=== PATIENT | female | born 1995 | race Two or more races ===

== ENCOUNTER 2018-06-16 17:50 | Emergency (ER) | payer SELFPAY ==
[~2018-06-16] VITALS: Ht 149.9 cm; Wt 68.0 kg
[2018-06-16 18:38] VITALS: BP 95/76
[2018-06-16] MEDS ORDERED: IV NORMAL SALINE 1000ML BAG 1,000 ML IV ONE (19:00)
--- NOTE | 2018-06-16 19:01 | PHYS DOC ---
Adult General Chief Complaint Chief Complaint: ABDOMINAL PAIN IN HPI HPI Patient is a 23 year old female who presents with lower abdominal pain Patient was diagnosed 8 days ago. Last night she had abrupt onset of left lower quadrant pain 8/10 severity constant without any aggravating or alleviating factors. She was sitting down when it occurred. She notes no vaginal bleeding or discharge. She's had prior 5 years ago. She denies any medical problems. She doesn't take any medications for anything. She doesn't smoke drink or do drugs. Review of Systems Review of Systems Constitutional: Denies fever or chills Eyes: Denies change in visual acuity, redness, or eye pain HENT: Denies nasal congestion or sore throat Respiratory: Denies cough or shortness of breath Cardiovascular: No additional information not addressed in HPI GI: With lower abdominal pain, nausea, no vomiting, bloody stools or diarrhea : Denies dysuria or hematuria, no vaginal bleeding Musculoskeletal: Denies back pain or joint pain Integument: Denies rash or skin lesions Neurologic: Denies headache, focal weakness or sensory changes Endocrine: Denies polyuria or polydipsia All other systems were reviewed and found to be within normal limits, except as documented in this note. Current Medications Current Medications Current Medications Medications (Trade) Dose Ordered Sig/Vandana Start Time Stop Time Status Last Admin Dose Admin Ceftriaxone Sodium (Rocephin) 1 gm Q24H 06/17/18 21:00 06/17/18 21:00 IA Clindamycin HCl (Cleocin) 300 mg 1X ONCE 06/16/18 23:00 06/16/18 23:02 DC 06/16/18 23:26 300 MG Sodium Chloride 1,000 ml @ 1,000 mls/hr 1X ONCE 06/16/18 19:00 06/16/18 19:59 DC 06/16/18 19:28 1,000 MLS/HR Allergies Allergies Allergies Coded Allergies Type Severity Reaction Last Updated Verified Penicillins Allergy Intermediate Hives 06/16/18 Yes Physical Exam Physical Exam Constitutional: Well developed, well nourished, no acute distress, non-toxic appearance. HENT: Normocephalic, atraumatic, bilateral external ears normal, oropharynx moist, no oral exudates, nose normal. Eyes: PERRLA, EOMI, conjunctiva normal, no discharge. Neck: Normal range of motion, no tenderness, supple, no stridor. Cardiovascular:Heart rate regular rhythm, no murmur Lungs & Thorax: Bilateral breath sounds clear to auscultation Abdomen: Bowel sounds normal, soft, with LLQ tenderness, no masses, no pulsatile masses. Pelvic exam with RN Adapted Physical Education Specialist Rama RN normal external genitalia speculum with white discharge in vault, no blood Bimanual with mild left adnexal tenderness, no masses. Uterus non tender, os closed. Skin: Warm, dry, no erythema, no rash. Back: No tenderness, no CVA tenderness. Extremities: No tenderness, no cyanosis, no clubbing, ROM intact, no edema. Neurologic: Alert and oriented X 3, normal motor function, normal sensory function, no focal deficits noted. Psychologic: Affect normal, judgement normal, mood normal. Current Patient Data Vital Signs Vital Signs Date Time Temp Pulse Resp B/P (MAP) Pulse Ox O2 Delivery O2 Flow Rate FiO2 06/16/18 18:38 98.4 75 16 95/76 (82) 100 Room Air 98.4 Lab Values Laboratory Tests Test 06/16/18 19:15 06/16/18 19:20 White Blood Count 7.4 x10^3/uL (4.0-11.0) Red Blood Count 4.08 x10^6/uL (3.50-5.40) Hemoglobin 12.5 g/dL (12.0-15.5) Hematocrit 36.9 % (36.0-47.0) Mean Corpuscular Volume 90 fL (79-100) Mean Corpuscular Hemoglobin 31 pg (25-35) Mean Corpuscular Hemoglobin Concent 34 g/dL (31-37) Red Cell Distribution Width 13.4 % (11.5-14.5) Platelet Count 296 x10^3/uL (140-400) Neutrophils (%) (Auto) 63 % (31-73) Lymphocytes (%) (Auto) 25 % (24-48) Monocytes (%) (Auto) 6 % (0-9) Eosinophils (%) (Auto) 6 % (0-3) H Basophils (%) (Auto) 0 % (0-3) Neutrophils # (Auto) 4.6 x10^3uL (1.8-7.7) Lymphocytes # (Auto) 1.9 x10^3/uL (1.0-4.8) Monocytes # (Auto) 0.4 x10^3/uL (0.0-1.1) Eosinophils # (Auto) 0.5 x10^3/uL (0.0-0.7) Basophils # (Auto) 0.0 x10^3/uL (0.0-0.2) Maternal Serum HCG Beta Subunit 5613 mIU/mL (0-5) H Sodium Level 139 mmol/L (136-145) Potassium Level 3.7 mmol/L (3.5-5.1) Chloride Level 103 mmol/L (98-107) Carbon Dioxide Level 25 mmol/L (21-32) Anion Gap 11 (6-14) Blood Urea Nitrogen 5 mg/dL (7-20) L Creatinine 0.6 mg/dL (0.6-1.0) Estimated GFR (Cockcroft-Gault) 123.9 BUN/Creatinine Ratio 8 (6-20) Glucose Level 84 mg/dL (70-99) Calcium Level 8.9 mg/dL (8.5-10.1) Total Bilirubin 0.3 mg/dL (0.2-1.0) Aspartate Amino Transferase (AST) 11 U/L (15-37) L Alanine Aminotransferase (ALT) 25 U/L (14-59) Alkaline Phosphatase 71 U/L (46-116) Total Protein 7.6 g/dL (6.4-8.2) Albumin 3.5 g/dL (3.4-5.0) Albumin/Globulin Ratio 0.9 (1.0-1.7) L Serum Test, Qualitative Positive (NEG) Urine Collection Type Unknown Urine Color Yellow Urine Clarity Clear Urine pH 7.0 Urine Specific [place] 1.020 Urine Protein Negative mg/dL (NEG-TRACE) Urine Glucose (UA) Negative mg/dL (NEG) Urine Ketones (Stick) Negative mg/dL (NEG) Urine Blood Negative (NEG) Urine Nitrite Negative (NEG) Urine Bilirubin Negative (NEG) Urine Urobilinogen Dipstick 1.0 mg/dL (0.2 mg/dL) Urine Leukocyte Esterase Moderate (NEG) Urine RBC Occ /HPF (0-2) Urine WBC 11-20 /HPF (0-4) Urine Squamous Epithelial Cells Mod /LPF Urine Bacteria Moderate /HPF (0-FEW) Urine Mucus Mod /LPF Laboratory Tests 06/16/18 19:15 Laboratory Tests 06/16/18 19:15 Microbiology 06/16/18 Wet Prep - Final, Complete Microbiology 06/16/18 Wet Prep - Final, Complete EKG EKG [] Radiology/Procedures Radiology/Procedures [[facility] [address] [place] [address] IMAGING REPORT Signed PATIENT: HEATH MORRIS ACCOUNT: [id number] : 1995 LOCATION: ER AGE: 23 SEX: F EXAM STATUS: REG ER ORD. PHYSICIAN: LIA SAMPSON MD REASON: LLQ pain PROCEDURE: OB <14 WKS W/TV Indication:LLQ PAIN, UTI TECHNIQUE: Ultrasound OB less than 14 weeks. COMPARISON:None FINDINGS: The uterus is anteverted and measures 11.5 x 3.6 x 5.8 cm (longitudinal, AP, transverse). The left ovary measures 3.8 x 2.5 x 3.2 cm with a thick walled 2.3 x 1.8 x 2.0 cm cystic structure most likely corpus luteal cyst of . The left ovary demonstrates evidence of blood flow. There is a well-circumscribed cystic structure in the endometrium with mean sac diameter of 0.53 cm corresponding to gestation age of 5 weeks 2 days. Yolk sac is visualized. No pole or cardiac activity seen. The cervix measures 3.12 cm in length and is closed. The right ovary measures 3.0 x 1.2 x 2.0 cm and demonstrates evidence of blood flow. IMPRESSION: Cystic structure in the endometrium most likely early gestation sac corresponding to gestation age of 5 weeks 4 days. No pole identified yet. Ectopic is not entirely ruled out. Clinically correlate with beta-hCG. Follow-up ultrasound recommended document pole. ======== Indication: Left lower quadrant pain. TECHNIQUE: Grayscale, color Doppler images of the left kidney. COMPARISON: None FINDINGS: The left kidney measures 10.8 x 5.3 x 6.3 cm (longitudinal, AP, transverse) without hydronephrosis. IMPRESSION: Normal sonographic appearance of left kidney. Electronically signed by: Nael Vargas DO (06/16/2018 9:54 PM) [facility] DICTATED and SIGNED BY: VARGASNAEL GARCIA DO DATE: 06/16/182149 Course & Med Decision Making Course & Med Decision Making Pertinent Labs and Imaging studies reviewed. (See chart for details) Emergency Department course Patient presents with lower abdominal pain, DDx-ectopic , , ovarian cyst, UTI, kidney stone Patient was stable in the ED improved after IV NS hydration. Labs remarkable for BHCG 5613, U/A showed UTI. Patient was given Rocephin IV. Pelvic and renal ultrasound showed no ectopic, hydronephrosis or stone. Patient has left corpus luteal cyst which maybe the cause of her pain. Wet prep showed bacterial vaginosis. Patient was given Clindamycin. Patient will follow-up with PCP for further evaluation and serial BHCG testing. Patient given ectopic precautions and advised to return to the ED for pain, bleeding, lightheadedness, SOB or vomiting. Patient was given prescription for Keflex and Clindamycin. 21:35 Preliminary report from material worker 5 week IUP with yoke sac Left corpus luteal cyst 2.5cm Left Kidney is normal Dragon Disclaimer Dragon Disclaimer This electronic medical record was generated, in whole or in part, using a voice recognition dictation system. Departure Departure Impression: Primary Impression: 5 weeks gestation of Additional Impressions: UTI (urinary tract infection) Bacterial vaginosis Corpus luteum cyst Disposition: HOME, SELF-CARE Condition: STABLE Referrals: NO PCP (PCP) DELLA JOSE MD Follow-up on Tuesday for further evaluation Patient Instructions: Bacterial Vaginosis, - Urinary Tract Infection Scripts Clindamycin Hcl (CLINDAMYCIN HCL) 300 Mg Capsule 1 CAP PO BID, #14 CAP Prov: LIA ASMPSON MD 06/16/18 Cephalexin (KEFLEX) 500 Mg Capsule 1 CAP PO BID, #14 CAP Prov: LIA SAMPSON MD 06/16/18 Problem Qualifiers LIA SAMPSON MD Jun 16, 2018 19:01
[2018-06-16 19:29] LABS: BASO % 0 % (0-3); EOS # 0.5 x10^3/uL (0.0-0.7); EOS % 6 % (0-3); HEMATOCRIT 36.9 % (36.0-47.0); HEMOGLOBIN 12.5 g/dL (12.0-15.5); LYMPH # 1.9 x10^3/uL (1.0-4.8); LYMPH % 25 % (24-48); MEAN CORPUSCULAR HEMOGLOBIN 31 pg (25-35); MEAN CORPUSCULAR HGB CONC 34 g/dL (31-37); MEAN CORPUSCULAR VOLUME 90 fL (79-100); MONO # 0.4 x10^3/uL (0.0-1.1); MONO % 6 % (0-9); NEUT # 4.6 x10^3uL (1.8-7.7); NEUT % 63 % (31-73); PLATELET COUNT 296 x10^3/uL (140-400); RED BLOOD COUNT 4.08 x10^6/uL (3.50-5.40); RED CELL DISTRIBUTION WIDTH 13.4 % (11.5-14.5); WHITE BLOOD COUNT 7.4 x10^3/uL (4.0-11.0)
[2018-06-16 19:31] LABS: BILIRUBIN,URINE NEGATIVE (NEG); CLARITY,URINE CLEAR; COLOR,URINE YELLOW; NITRITE,URINE NEGATIVE (NEG); PROTEIN,URINE NEGATIVE (NEG-TRACE)
[2018-06-16 19:39] LABS: CALCIUM 8.9 mg/dL (8.5-10.1); CREATININE 0.6 mg/dL (0.6-1.0); GFR 123.9; POTASSIUM 3.7 mmol/L (3.5-5.1)
[2018-06-16 19:40] LABS: PREG TEST PT QUAL POSITIVE (NEG)
[2018-06-16 19:41] LABS: BACTERIA,URINE MODERATE /HPF (0-FEW); RBC,URINE OCC /HPF (0-2); SQUAMOUS EPITHELIAL CELL,UR MOD /LPF
[2018-06-16 19:45] LABS: ALBUMIN 3.5 g/dL (3.4-5.0); ALBUMIN/GLOBULIN RATIO 0.9 (1.0-1.7); TOTAL BILIRUBIN 0.3 mg/dL (0.2-1.0); TOTAL PROTEIN 7.6 g/dL (6.4-8.2)
--- NOTE | 2018-06-16 21:57 | RAD ---
Indication:LLQ PAIN, UTI TECHNIQUE: Ultrasound OB less than 14 weeks. COMPARISON:None FINDINGS: The uterus is anteverted and measures 11.5 x 3.6 x 5.8 cm (longitudinal, AP, transverse). The left ovary measures 3.8 x 2.5 x 3.2 cm with a thick walled 2.3 x 1.8 x 2.0 cm cystic structure most likely corpus luteal cyst of . The left ovary demonstrates evidence of blood flow. There is a well-circumscribed cystic structure in the endometrium with mean sac diameter of 0.53 cm corresponding to gestation age of 5 weeks 2 days. Yolk sac is visualized. No pole or cardiac activity seen. The cervix measures 3.12 cm in length and is closed. The right ovary measures 3.0 x 1.2 x 2.0 cm and demonstrates evidence of blood flow. IMPRESSION: Cystic structure in the endometrium most likely early gestation sac corresponding to gestation age of 5 weeks 4 days. No pole identified yet. Ectopic is not entirely ruled out. Clinically correlate with beta-hCG. Follow-up ultrasound recommended document pole. ======== Indication: Left lower quadrant pain. TECHNIQUE: Grayscale, color Doppler images of the left kidney. COMPARISON: None FINDINGS: The left kidney measures 10.8 x 5.3 x 6.3 cm (longitudinal, AP, transverse) without hydronephrosis. IMPRESSION: Normal sonographic appearance of left kidney. Electronically signed by: Nael Vargas DO (06/16/2018 9:54 PM) [facility]
[2018-06-16] MEDS ORDERED: CLINDAMYCIN HCL 150 MG CAPSULE. PO ONE (23:00)
[2018-06-16] MEDS ORDERED: CLIN300C8 PO (23:05)
[2018-06-16] MEDS ORDERED: CEPH-264 PO (23:05)
[2018-06-17] MEDS ORDERED: cefTRIAXone IV Push 1 GM VIAL. IVP SCH (21:00)
[2018-06-19 14:21] LABS: GC PROBE Negative (Negative)
== END 2018-06-16 23:40 | disposition home or self-care (01) ==
LOC: ER 17:50
DX: O34.81 Maternal care for other abnormalities of pelvic organs, first trimester (principal); N83.12 Corpus luteum cyst of left ovary; O23.41 Unspecified infection of urinary tract in pregnancy, first trimester; O23.591 Infection of other part of genital tract in pregnancy, first trimester; N76.0 Acute vaginitis; B96.89 Other specified bacterial agents as the cause of diseases classified elsewhere; Z3A.01 Less than 8 weeks gestation of pregnancy; Z88.0 Allergy status to penicillin
CPT/HCPCS: 36415; 76775; 76801; 76817; 80053; 81001; 84702; 84703; 85025; 87086; 87491; 87591; 96365; 99285; J0690; J7030; Q0111

== ENCOUNTER 2018-06-22 08:38 | Emergency (ER) | payer SELFPAY ==
[~2018-06-22] VITALS: Ht 154.9 cm; Wt 66.7 kg
[~2018-06-22 08:38] MED LIST: CEPH-264 PO; CLIN300C8 PO
[2018-06-22 09:11] LABS: BILIRUBIN,URINE NEGATIVE (NEG); CLARITY,URINE CLOUDY; COLOR,URINE AMBER; NITRITE,URINE NEGATIVE (NEG); PROTEIN,URINE 30 mg/dL (NEG-TRACE); UROBILINOGEN,URINE 0.2 mg/dL (0.2 mg/dL)
[2018-06-22 09:19] LABS: SQUAMOUS EPITHELIAL CELL,UR MANY /LPF
[2018-06-22 09:20] LABS: BACTERIA,URINE MANY /HPF (0-FEW)
[2018-06-22 09:41] LABS: BASO % 0 % (0-3); EOS # 0.2 x10^3/uL (0.0-0.7); EOS % 4 % (0-3); HEMOGLOBIN 12.6 g/dL (12.0-15.5); LYMPH # 1.4 x10^3/uL (1.0-4.8); LYMPH % 23 % (24-48); MEAN CORPUSCULAR HEMOGLOBIN 31 pg (25-35); MEAN CORPUSCULAR HGB CONC 34 g/dL (31-37); MEAN CORPUSCULAR VOLUME 90 fL (79-100); MONO # 0.4 x10^3/uL (0.0-1.1); MONO % 6 % (0-9); NEUT # 4.2 x10^3uL (1.8-7.7); NEUT % 68 % (31-73); PLATELET COUNT 275 x10^3/uL (140-400); RED BLOOD COUNT 4.09 x10^6/uL (3.50-5.40); RED CELL DISTRIBUTION WIDTH 13.1 % (11.5-14.5); WHITE BLOOD COUNT 6.2 x10^3/uL (4.0-11.0)
[2018-06-22 09:48] LABS: CREATININE 0.5 mg/dL (0.6-1.0); GFR 152.9; POTASSIUM 3.4 mmol/L (3.5-5.1)
[2018-06-22 09:55] LABS: ALBUMIN 3.3 g/dL (3.4-5.0); ALBUMIN/GLOBULIN RATIO 0.8 (1.0-1.7); TOTAL BILIRUBIN 0.4 mg/dL (0.2-1.0); TOTAL PROTEIN 7.2 g/dL (6.4-8.2)
--- NOTE | 2018-06-22 11:23 | RAD ---
OB TRANSVAG Clinical Indication: VAGINAL BLEEDING Comparison: Obstetrical ultrasound, less than 14 weeks, June 16, 2018. TECHNIQUE: Real-time ultrasound imaging of the pelvis using transvaginal window is performed. Findings: Anteverted uterus. Uterus measures 8.8 x 6.4 x 4.2 cm. The maternal right ovary is not visualized perhaps due to overlying bowel gas. Left corpus luteum redemonstrated measuring up to 1.8 cm. Normal blood flow in left ovary. Intrauterine gestational sac containing a pole and yolk sac. Contour of the sac is smooth, no perigestational hemorrhage. [place]-rump length is 0.3 cm, 5 weeks and 6 days. Estimated heart rate 92 bpm. LIZA ultrasound is 02/16/2019. IMPRESSION: 1. Single live intrauterine gestation, estimated sonographic gestational age 5 weeks and 6 days. 2. Estimated heart rate is 92 bpm, slower than expected. Suggest attention on follow-up imaging. 3. Redemonstrated left corpus luteum. Electronically signed by: Lucio Varner MD (06/22/2018 11:20 AM) [id number]
[2018-06-22] MEDS ORDERED: NITR100C63 PO (11:42)
--- NOTE | 2018-06-22 11:42 | PHYS DOC ---
Past Medical History Past Medical History: No Pertinent History Past Surgical History: Alcohol Use: None Drug Use: None Adult General Chief Complaint Chief Complaint: VAGINAL BLEEDING [facility] HPI Patient is a 23 year old female 2 para 1 currently 5 weeks who presents today complaining of vaginal spotting that she noted this morning when she wiped herself. Patient denies any abdominal pain. Denies any nausea, vomiting. She states she has not seen an MANAGER CATEGORY in this yet. Interpretation was provided by a friend patient brought to the ED with, patient spoke Upper Sorbian only. Review of Systems Review of Systems Constitutional: Denies fever or chills [] Eyes: Denies change in visual acuity, redness, or eye pain [] HENT: Denies nasal congestion or sore throat [] Respiratory: Denies cough or shortness of breath [] Cardiovascular: No additional information not addressed in HPI [] GI: Denies abdominal pain, nausea, vomiting, bloody stools or diarrhea [] : Reports vaginal spotting. Denies dysuria or hematuria [] Musculoskeletal: Denies back pain or joint pain [] Integument: Denies rash or skin lesions [] Neurologic: Denies headache, focal weakness or sensory changes [] All other systems were reviewed and found to be within normal limits, except as documented in this note. Allergies Allergies Allergies Coded Allergies Type Severity Reaction Last Updated Verified Penicillins Allergy Intermediate Hives 06/16/18 Yes Physical Exam Physical Exam Constitutional: Well developed, well nourished, no acute distress, non-toxic appearance. [] HENT: Normocephalic, atraumatic, bilateral external ears normal, oropharynx moist, no oral exudates, nose normal. [] Eyes: PERRLA, EOMI, conjunctiva normal, no discharge. [] Neck: Normal range of motion, no tenderness, supple, no stridor. [] Cardiovascular:Heart rate regular rhythm, no murmur [] Lungs & Thorax: Bilateral breath sounds clear to auscultation [] Abdomen: Bowel sounds normal, soft, no tenderness, no masses, no pulsatile masses. [] Pelvic exam External pelvic appears normal, cervix is closed, no CMT, no adnexal tenderness , trace amount of brownish discharge in the vaginal vault consistent with spotting. Skin: Warm, dry, no erythema, no rash. [] Back: No tenderness, no CVA tenderness. [] Extremities: No tenderness, no cyanosis, no clubbing, ROM intact, no edema. [] Neurologic: Alert and oriented X 3, normal motor function, normal sensory function, no focal deficits noted. [] Psychologic: Affect normal, judgement normal, mood normal. [] Current Patient Data Vital Signs Vital Signs Date Time Temp Pulse Resp B/P (MAP) Pulse Ox O2 Delivery O2 Flow Rate FiO2 06/22/18 10:33 82 17 102/58 (73) 98 Room Air 06/22/18 08:50 98.0 98.0 Lab Values Laboratory Tests Test 06/22/18 08:48 06/22/18 09:04 06/22/18 09:25 Urine Collection Type Unknown Urine Color [place] Urine Clarity Cloudy Urine pH 6.0 Urine Specific [place] 1.025 Urine Protein 30 mg/dL (NEG-TRACE) Urine Glucose (UA) Negative mg/dL (NEG) Urine Ketones (Stick) Trace mg/dL (NEG) Urine Blood Large (NEG) Urine Nitrite Negative (NEG) Urine Bilirubin Negative (NEG) Urine Urobilinogen Dipstick 0.2 mg/dL (0.2 mg/dL) Urine Leukocyte Esterase Moderate (NEG) Urine RBC 11-20 /HPF (0-2) Urine WBC 11-20 /HPF (0-4) Urine Squamous Epithelial Cells Many /LPF Urine Bacteria Many /HPF (0-FEW) Urine Mucus Marked /LPF POC Urine HCG, Qualitative Hcg positive (Negative) White Blood Count 6.2 x10^3/uL (4.0-11.0) Red Blood Count 4.09 x10^6/uL (3.50-5.40) Hemoglobin 12.6 g/dL (12.0-15.5) Hematocrit 37.0 % (36.0-47.0) Mean Corpuscular Volume 90 fL (79-100) Mean Corpuscular Hemoglobin 31 pg (25-35) Mean Corpuscular Hemoglobin Concent 34 g/dL (31-37) Red Cell Distribution Width 13.1 % (11.5-14.5) Platelet Count 275 x10^3/uL (140-400) Neutrophils (%) (Auto) 68 % (31-73) Lymphocytes (%) (Auto) 23 % (24-48) L Monocytes (%) (Auto) 6 % (0-9) Eosinophils (%) (Auto) 4 % (0-3) H Basophils (%) (Auto) 0 % (0-3) Neutrophils # (Auto) 4.2 x10^3uL (1.8-7.7) Lymphocytes # (Auto) 1.4 x10^3/uL (1.0-4.8) Monocytes # (Auto) 0.4 x10^3/uL (0.0-1.1) Eosinophils # (Auto) 0.2 x10^3/uL (0.0-0.7) Basophils # (Auto) 0.0 x10^3/uL (0.0-0.2) Maternal Serum HCG Beta Subunit 21343 mIU/mL (0-5) H Sodium Level 135 mmol/L (136-145) L Potassium Level 3.4 mmol/L (3.5-5.1) L Chloride Level 103 mmol/L (98-107) Carbon Dioxide Level 26 mmol/L (21-32) Anion Gap 6 (6-14) Blood Urea Nitrogen 5 mg/dL (7-20) L Creatinine 0.5 mg/dL (0.6-1.0) L Estimated GFR (Cockcroft-Gault) 152.9 BUN/Creatinine Ratio 10 (6-20) Glucose Level 84 mg/dL (70-99) Calcium Level 9.0 mg/dL (8.5-10.1) Total Bilirubin 0.4 mg/dL (0.2-1.0) Aspartate Amino Transferase (AST) 11 U/L (15-37) L Alanine Aminotransferase (ALT) 25 U/L (14-59) Alkaline Phosphatase 53 U/L (46-116) Total Protein 7.2 g/dL (6.4-8.2) Albumin 3.3 g/dL (3.4-5.0) L Albumin/Globulin Ratio 0.8 (1.0-1.7) L Laboratory Tests 06/22/18 09:25 Laboratory Tests 06/22/18 09:25 Microbiology 06/22/18 Wet Prep - Final, Complete EKG EKG [] Radiology/Procedures Radiology/Procedures []PROCEDURE: OB TRANSVAG OB TRANSVAG Clinical Indication: VAGINAL BLEEDING Comparison: Obstetrical ultrasound, less than 14 weeks, June 16, 2018. TECHNIQUE: Real-time ultrasound imaging of the pelvis using transvaginal window is performed. Findings: Anteverted uterus. Uterus measures 8.8 x 6.4 x 4.2 cm. The maternal right ovary is not visualized perhaps due to overlying bowel gas. Left corpus luteum redemonstrated measuring up to 1.8 cm. Normal blood flow in left ovary. Intrauterine gestational sac containing a pole and yolk sac. Contour of the sac is smooth, no perigestational hemorrhage. [place]-rump length is 0.3 cm, 5 weeks and 6 days. Estimated heart rate 92 bpm. LIZA ultrasound is 02/16/2019. IMPRESSION: 1. Single live intrauterine gestation, estimated sonographic gestational age 5 weeks and 6 days. 2. Estimated heart rate is 92 bpm, slower than expected. Suggest attention on follow-up imaging. 3. Redemonstrated left corpus luteum. Electronically signed by: Lucio Severino MD (06/22/2018 11:20 AM) [id number] DICTATED and SIGNED BY: LUCIO SEVERINO MD DATE: 06/22/18 1114 Course & Med Decision Making Course & Med Decision Making Pertinent Labs and Imaging studies reviewed. (See chart for details) This is a 23-year-old female patient presenting to the ED today with vaginal spotting in . Symptoms began this morning. 2 para 1. On pelvic exam she had trace amount of brownish discharge in the vaginal vault. Blood group O positive. Urine analysis is noted for UTI, patient was placed on MicroBid though this urine also appears contaminated. OB ultrasound noted for single IUP 5 weeks 6 days heart rate 92 which radiology states this is slower than expected and suggested follow up imagining. Results relayed to patient and instructed to f/u with OB in 2-3 days for repeat labs and ultrasound. [id number], WBC, hemoglobin and hematocrit are normal. CMP with no acute findings. Patient was provided an MANAGER CATEGORY and requested to follow-up in 2-3 days. Pelvic rest also recommended. Dragon Disclaimer Dragon Disclaimer This electronic medical record was generated, in whole or in part, using a voice recognition dictation system. Departure Departure Impression: Primary Impression: Threatened miscarriage Additional Impression: Urinary tract infection during Disposition: HOME, SELF-CARE Condition: STABLE Referrals: NO PCP (PCP) CAMPOS,MICHAEL K MD follow up with your doctor or OBGYN in 2-3 days. Patient Instructions: - Urinary Tract Infection, Threatened Miscarriage Additional Instructions: You were evaluated in the emergency room for vaginal bleeding in . Do not have any intercourse until you are seen by the MANAGER CATEGORY and the bleeding has stopped. Do not do any strenuous activity for the same amount of time. Your ultrasound was noted for single intrauterine at 5 weeks 6 days. Please follow up with the OBGYN in 2-3 days for follow up labs and ultrasound. Come back to the Ed if symptoms worsen. You also have urinary tract infection please complete your antibiotics. Scripts Nitrofurantoin Macrocrystal (MACRODANTIN) 100 Mg Capsule 1 CAP PO BID, #14 CAP Prov: PAUL MOSS APRN 06/22/18 Problem Qualifiers Additional Impression: Urinary tract infection during Trimester: first trimester Qualified Codes: O23.41 - Unspecified infection of urinary tract in , first trimester PAUL MOSS APRN Jun 22, 2018 11:42
[2018-06-22 12:04] VITALS: BP 110/61
[2018-06-23 14:24] LABS: GC PROBE Negative (Negative)
== END 2018-06-22 12:18 | disposition home or self-care (01) ==
LOC: ER 08:38
DX: O20.0 Threatened abortion (principal); O23.41 Unspecified infection of urinary tract in pregnancy, first trimester; Z98.890 Other specified postprocedural states; Z88.0 Allergy status to penicillin; Z3A.01 Less than 8 weeks gestation of pregnancy
CPT/HCPCS: 36415; 76817; 80053; 81001; 81025; 84702; 85025; 86850; 86900; 86901; 87491; 87591; 99285; Q0111; 87086; 87186